=== PATIENT | male | born 1935 | race Caucasian/White ===

== ENCOUNTER 2017-04-30 07:38 | Emergency (ER) | payer MEDICARE, BC ==
[2016-05-03 13:25] VITALS: BMI 26.6
[~2017-04-30 07:38] MED LIST: ATIVAN0.5 MG PO; BAYER CHEWABLE81 MG PO; FLOMAX0.4 MG PO; ISOSORBIDE MONO30 M1 PO; PLAVIX75 MG PO; TOPROL XL50 MG PO; VENTOLIN HFA18 GM INH
[2017-04-30 08:08] LABS: BASOPHILS 0.7 % (0-2); EOSINOPHILS 4.4 % (0-7); HEMATOCRIT 38.3 % (42.0-54.0); HEMOGLOBIN 12.1 g/dL (13.5-17.5); LYMPHOCYTES 11.6 % (15-50); MCH 28.3 pg (26.0-34.0); MCHC 31.6 g/dL (31.0-37.0); MCV 89.7 fL (80.0-100.0); MEAN PLATELET VOLUME 9.6 fL (7.4-10.4); MONOCYTES 13.2 % (2-11); NEUTROPHILS 70.1 % (40-80); PLATELET COUNT 180 10x3/uL (130-400); RBC 4.27 10x6/uL (4.20-6.10); RDW 15.2 % (11.5-14.5); WBC 4.3 10x3/uL (4.8-10.8)
[2017-04-30 08:43] LABS: APTT 27.7 SECONDS (22.8-39.4); INR 0.98 (0.85-1.17); PROTIME 12.8 SECONDS (11.6-15.0)
== END 2017-04-30 09:18 | disposition home or self-care (01) ==
LOC: D.ER 07:38
PROVIDERS: Emergency Medicine
DX: R04.0 Epistaxis (principal)

== ENCOUNTER 2017-08-27 14:19 | Emergency (ER) | payer MEDICARE, BC ==
[2016-05-03 13:25] VITALS: BMI 26.6
== END 2017-08-27 16:29 | disposition home or self-care (01) ==
LOC: D.ER 14:19
DX: S00.83XA Contusion of other part of head, initial encounter (principal); W01.0XXA Fall on same level from slipping, tripping and stumbling without subsequent striking against object, initial encounter; Y93.89 Activity, other specified; Y92.59 Other trade areas as the place of occurrence of the external cause; S51.012A Laceration without foreign body of left elbow, initial encounter; S01.412A Laceration without foreign body of left cheek and temporomandibular area, initial encounter

== ENCOUNTER → 2018-01-31 16:53 | Outpatient (CLI) | payer MEDICARE, BC ==
[2016-05-03 13:25] VITALS: BMI 26.6
== END | disposition home or self-care (01) ==
LOC: D.MRI 16:53
DX: M54.5 Low back pain (principal)

== ENCOUNTER 2018-10-31 06:11 | Outpatient (CLI) | payer MEDICARE, BC ==
[~2018-10-31] VITALS: Ht 175.3 cm; Wt 77.3 kg
--- NOTE | ~2018-10-31 | HEMODYNAMI ---
PATIENT:KHANH KEY MEDICAL RECORD: [id number] : 33 LOCATION:[facility] ADMISSION DATE: 10/31/18 Generatedon:10/31/20188:43 Patient name: KHANH KEY Patient #: [id number] SSN: : [id number] Date of study: 10/31/2018 Page: Of Hemodynamic Procedure Report Patient Data Patient Demographics Procedure consent was obtained First Name: KHANH Gender: Male Last Name: YESI : 1935 [facility] Initial: SHANDRA Age: 82 year(s) Patient #: [id number] Race: Additional ID: [id number] Contact details Address: [address] [place] [address] [place] State: [place] City: [facility] Zip code: [address] Past Medical History Allergies: No known allergies Admission Admission Data Admission Date: 10/31/2018 Admission Time: 6:11 Height (in.): 60 BSA: 1.77 (m2) Height (cm.): 152.4 BMI: 34.37 (kg/m2) Weight (lbs.): 176 Weight (kg.): 79.83 Lab Results Lab Result Date: 10/31/2018 Lab Result Time: 0:00 Biochemistry Name Units Result Min Max BUN mg/dl 26 --(----)-* 7 18 Creatinine mg/dl 1.3 --(---*)-- 0.6 1.3 CBC Name Units Result Min Max Hemoglobin g/dl 12.1 *-(----)-- 13.5 17.5 Procedure Procedure Types Cath Procedure Diagnostic Procedure LHC Coronaries w/Grafts Aortic Root Angiography Sedation Charges Moderate Sedation up to 30 minutes Peripheral Cath Diagnostic Procedure Abd/Extremity Aortagram Procedure Description Procedure Date Procedure Date: 10/31/2018 Procedure Start Time: 8:10 Procedure End Time: 8:41 Procedure Staff Name Function Issac Ritchie MD Performing Physician Neville Wilburn RN Elevated Work Platform Operator Enoch Quiroz RN Nurse Nadine Khanna RT Scrub Delfino Frost RT Monitor Procedure Data Cath Procedure Fluoroscopy Diagnostic fluoroscopy Total fluoroscopy Time: 6.7 time: 6.7 min min Diagnostic fluoroscopy Total fluoroscopy dose: 878 dose: 878 mGy mGy Contrast Material Contrast Material Type Amount (ml) Isovue 300 93 Entry Location Entry Primary Successful Side Size Upsize Upsize Entry Closure [place] ccessful Closure Location (Fr) 1 (Fr) 2 (Fr) Remarks Device Remarks Femoral Right 5 Fr Manual vein Compression Femoral Right 5 Fr Exoseal artery Estimated blood loss: 5 ml Diagnostic catheters Device Type Used For End Catheter Placement MULTIPACK JL 4.0 5Fr Procedure catheter DIAGNOSTIC IM 5Fr Procedure catheter ([id number]) MULTIPACK Pigtail 5 Fr Procedure catheter Procedure Complications No complications Procedure Medications Medication Administration Route Dosage Oxygen etCO2 Nasal cannula 2 l/min Lidocaine 2% added to field 20 Heparin Flush Bag added to field 2 bags (1000units/500ml NS) 0.9% NaCl I.V. 100 ml/hr Versed I.V. 1 mg Fentanyl I.V. 50 mcg Versed I.V. 0.5 mg Fentanyl I.V. 25 mcg Versed I.V. 0.5 mg Fentanyl I.V. 25 mcg Hemodynamics Rest BSA: 1.77 (m2) HGB: 12.1 (g/dl) O2 Consumption: Estimated: 200.61 (ml/min) O2 Co nsumption indexed: Estimated:113.34 (ml/min/m) Heart Rate: 69 (bpm) Snapshots Pre Cath Intra NCS Post Cath Vital Signs Time Heart Resp SPO2 etCO2 NIBP (mmHg) Rhythm Pain Sedation Rate (ipm) (%) (mmHg) Status Level (bpm) 7:58:29 73 14 98 30.4 148/84(119) NSR 0 (11) 10(A) , No pain 8:02:47 69 13 99 0 128/67(89) NSR 0 (11) 10(A) , No pain 8:06:57 69 14 94 0 109/64(77) NSR 0 (11) 9(A) , No pain 8:11:07 67 13 95 0 115/65(89) NSR 0 (11) 9(A) , No pain 8:15:19 68 20 98 8.9 122/69(101) NSR 0 (11) 9(A) , No pain 8:19:35 69 11 96 0 123/64(93) NSR 0 (11) 9(A) , No pain 8:23:51 69 11 93 0 115/62(84) NSR 0 (11) 9(A) , No pain 8:28:05 71 13 94 0 121/61(91) NSR 0 (11) 9(A) , No pain 8:32:19 70 12 93 0 121/67(98) NSR 0 (11) 9(A) , No pain 8:36:35 69 11 94 0 126/62(91) NSR 0 (11) 10(A) , No pain 8:40:49 66 11 99 25.2 121/72(102) NSR 0 (11) 10(A) , No pain Medications Time Medication Route Dose Verified Delivered Reason Notes Effe ctiveness by by 7:56:56 Oxygen etCO2 2 Issac Buffie used for Nasal l/min Chau Quiroz RN procedure cannula 7:57:01 Lidocaine 2% added 20ml Issac Issac for local to vial Chau Ritchie MD anesthetic field 7:57:08 Heparin Flush added 2 Issac Issac used for Bag to bags Chau Ritchie MD procedure (1000units/500ml field NS) 7:57:17 0.9% NaCl I.V. 100 Issac Buffie Per ml/hr Chau Quiroz RN physician 8:05:22 Versed I.V. 1 mg Issac Buffie for Chau Quiroz RN sedation 8:05:27 Fentanyl I.V. 50 Issac Buffie for mcg Chau Quiroz RN anxiety 8:10:38 Versed I.V. 0.5 Issac Buffie for mg Chau Quiroz RN sedation 8:10:42 Fentanyl I.V. 25 Issac Buffie for mcg Chau Quiroz RN anxiety 8:15:39 Versed I.V. 0.5 Issac Buffie for mg Chau Quiroz RN sedation 8:15:42 Fentanyl I.V. 25 Issac Buffie for mcg Chau Quiroz RN anxiety Procedure Log Time Note 7:39:26 Signed procedure consent form obtained from patient. 7:39:51 H&P Date Dictated: 10/24/2018 Within 30 days and on chart., H&P Addendum completed by physician on day of procedure. (MUST COMPLETE FOR ALL OUTPATIENTS). 7:41:31 Patient allergic to No known allergies 7:43:57 Lab Result : Creatinine 1.3 mg/dl 7::57 Lab Result : BUN 26 mg/dl 7:43:57 Lab Result : Hemoglobin 12.1 g/dl 7:44:39 Patient Height : 60 inches 7:44:43 Patient Weight : 176 lbs 7:44:55 Neville Wilburn RN sent for patient. Start room use. 7:44:56 Time tracking: Regular hours (M-F 7:00 - 5:00) 7:44:59 Plan of Care:Hemodynamics will remain stable., Cardiac rhythm will remain stable., Comfort level will be maintained., Respiratory function will remain adequate., Patient/ family verbilizes understanding of procedure., Procedure tolerated without complication., Recovers from procedure without complications.. 7:51:52 Patient received from Pre/Post Procedure Room to [facility] 1 Alert and oriented. Tansferred to table in Supine position. 7:51:53 Warm blankets applied, and kiesha hugger turned on for patient comfort. 7:51:54 Correct patient and procedure confirmed by team. 7:51:54 ECG and BP/O2 sat monitors applied to patient. 7:56:56 Oxygen 2 l/min etCO2 Nasal cannula was administered by Enoch Quiroz RN; used for procedure; 7:57:01 Lidocaine 2% 20ml vial added to field was administered by Issac Ritchie MD; for local anesthetic; 7:57:08 Heparin Flush Bag (1000units/500ml NS) 2 bags added to field was administered by Issac Ritchie MD; used for procedure; 7:57:17 0.9% NaCl 100 ml/hr I.V. was administered by Enoch Quiroz RN; Per physician; 7:57:23 Vital chart was started 8:02:16 Baseline sample Acquired. 8:02:18 Rhythm: sinus rhythm 8:02:21 Full Disclosure recording started 8:02:22 Pre-procedure instructions explained to patient. 8:02:22 Pre-op teaching completed and patient verbalized understanding. 8:02:23 Family in waiting room. 8:02:32 Patient NPO since Midnight. 8:02:36 Is the patient allergic to Iodine/contrast media? No. 8:02:37 Is patient on blood thinner?Yes 8:02:40 ACC The patient was administered the following blood thiners within the last 24 hours: ACCPlavix 8:02:41 Patient diabetic? No. 8:02:44 Previous problem with sedation/anesthesia? No ? 8:02:45 Snore? No 8:02:46 Sleep apnea? No 8:02:46 Deviated septum? No 8:02:47 Opens mouth fully? Yes 8:02:47 Sticks out tongue? Yes 8:02:49 Airway obstruction? Yes ? 8:02:51 Dentures? Yes in tight 8:02:54 Pre procedure: right dorsailis pedis pulse 2+ Normal; easily identifiable; not easily obliterated 8:02:56 Patient pain scale 0/10 ?. 8:02:59 IV patent on arrival in right forearm with 0.9% NaCl at O. 8:03:00 Lab results completed and on chart. 8:03:02 Right groin area was prepped with chlora-prep and draped in sterile fashion 8:03:03 Alarms reviewed by R. N. 8:03:04 Sharps counted by scrub and verified by R.N. 8:03:05 Use device set Femoral Dx 8:03:06 Bag Decanter (2002S) opened to sterile field. 8:03:07 ACIST Syringe (94320) opened to sterile field. 8:03:07 Medline Cath Pack ([id number]) opened to sterile field. 8:03:08 ACIST Hand Control (53213) opened to sterile field. 8:03:08 ACIST Manifold (36952) opened to sterile field. 8:03:09 Tegaderm 4 x 4 (1626W) opened to sterile field. 8:03:10 SHEATH 5FR Rosman ([id number]) opened to sterile field. 8:03:11 DIAGNOSTIC WIRE .035 260cm J wire (385669) opened to sterile field. 8:03:12 DIAGNOSTIC Multipack 5Fr catheter set ([id number]) opened to sterile field. 8:03:19 Physician arrived 8:03:19 --------ALL STOP TIME OUT------ 8:03:19 Final Timeout: patient, procedure, and site verified with staff and physician. All members of the team are in agreement. 8:03:20 Right groin site verified by team. 8:03:23 Maximum allowable Isovue 300 dose 300ml. Physician notified. (300ml for normal creatinines. For patients with creatinine of 1.7 or higher multiply weight(kg) x 5 divided by creatinine.) 8:03:26 Fire Safety Assessment: A--An alcohol-based skin anteseptic being used preoperatively., C--Open oxygen or nitrous oxide is being used., D--An ESU, laser, or fiber-optic light is being used. 8:03:28 Physical assessment completed. ASA score P 2 - A patient with mild systemic disease as per Issac Ritchie MD. 8:03:29 Sedation plan: IV Moderate Sedation Medication:Versed, Fentanyl 8:05:22 Versed 1 mg I.V. was administered by Enoch Quiroz RN; for sedation; 8:05:27 Fentanyl 50 mcg I.V. was administered by Enoch Quiroz RN; for anxiety; 8:06:04 Zero performed for pressure channel P1 8:10:14 Procedure started. 8:10:19 Local anesthetic to right femoral vein with Lidocaine 2% by Issac Ritchie MD.INITIAL ACCESS ONLY 8:10:28 A 5 Fr sheath was inserted into the Right Femoral vein 8:10:38 Versed 0.5 mg I.V. was administered by Enoch Quiroz RN; for sedation; 8:10:42 Fentanyl 25 mcg I.V. was administered by Enoch Quiroz RN; for anxiety; 8:13:03 SHEATH 5FR Rosman ([id number]) opened to sterile field. 8:13:54 A 5 Fr sheath was inserted into the Right Femoral artery 8:15:39 Versed 0.5 mg I.V. was administered by Enoch Quiroz RN; for sedation; 8:15:42 Fentanyl 25 mcg I.V. was administered by Enoch Quiroz RN; for anxiety; 8:19:57 A MULTIPACK JL 4.0 5Fr catheter was advanced over the wire and used for Procedure. 8:20:17 LCA angiography performed. 8:23:42 Catheter exchanged over wire. 8:25:05 A DIAGNOSTIC IM 5Fr catheter ([id number]) was advanced over the wire and used for Procedure. 8:27:45 GLIDE WIRE ANGLE 260cm (RO4160) opened to sterile field. 8:29:03 WHALEY to LAD angiography performed. 8:29:44 Catheter exchanged over wire. 8:30:04 A MULTIPACK Pigtail 5 Fr catheter was advanced over the wire and used for Procedure. 8:31:27 Aortic Root visualized 8:32:53 Abdominal Aortagram was performed. 8:37:52 Catheter removed. 8:37:59 EXOSEAL 5Fr (EX500) opened to sterile field. 8:38:35 Sheath removed intact; hemostasis achieved with Exoseal to the Right Femoral artery. 8:38:40 Sheath removed intact; hemostasis achieved with Manual Compression to the Right Femoral vein. 8:38:47 Procedure ended.(Physican Out) 8:39:15 Fluoroscopy time 06.70 minutes. 8:39:19 Flurop Dose total: 878 8:39:19 Fluoroscopy dose: 878 mGy 8:39:30 Contrast amount:Isovue 300 93ml. 8:39:32 Sharps counted by scrub and verified by R.N. 8:39:32 Insertion/operative site no bleeding no hematoma. 8:39:35 Post-op/insertion site Right Femoral artery dressed using a 4 x 4 and Tegaderm. 8:39:38 Post right femoral artery:stable, soft, clean and dry 8:39:39 Post Procedure Pulses reassessed and unchanged 8:39:41 Post-procedure physical assessment completed. ASA score P 2 - A patient with mild systemic disease as per Issac Ritchie MD. 8:39:43 Post procedure rhythm: unchanged. 8:39:44 Estimated blood loss: 5 ml 8:39:46 Post procedure instruction explained to patient.Patient verbalizes understanding. 8:39:46 Patient needs reinforcement of post procedure teaching. 8:40:10 Procedure type changed to Cath procedure, Diagnostic procedure, LHC, Coronaries w/Grafts, Aortic Root Angiography, Sedation Charges, Moderate Sedation up to 30 minutes, Peripheral Cath Diagnostic Procedure, Abd/Extremity, Aortagram 8:41:46 Procedure and supply charges have been captured, reviewed, submitted and are correct. 8:41:49 Procedure Complication : No complications 8:41:51 Vital chart was stopped 8:41:52 See physician's report for complete and final results. 8:41:53 Report given to Pre/Post Procedure Room. 8:41:55 Patient transfered to Pre/Post Procedure Room with Stretcher. 8:41:57 Procedure ended. 8:41:57 Full Disclosure recording stopped 8:42:00 End room use (Document Last) Device Usage Item Name Manufacture Quantity Catalog Hospital Part Current Minimal L ot# / Number Charge Number Stock Stock Serial# Code Bag Marlo 1 [id number] 28545 680457 5 Decanter Medical Inc. () ACIST Acist 1 10130 001888 928437 852856 20 Syringe Medical (83284) Systems Inc Medline Medline 1 [id number] 644488 95864 357115 5 Cath Pack ([id number]) ACIST Hand Acist 1 81139 270487 268886 075321 5 Control Medical (52648) Systems Inc ACIST Acist 1 09074 884144 752307 568212 5 Manifold Medical (77432) Systems Inc Tegaderm 4 3M 1 1626W 214275 873115 527630 5 x 4 (1626W) SHEATH 5FR Terumo 2 [id number] 459904 270015 780097 5 Rosman (STT897) DIAGNOSTIC [facility] 1 372918 003918 559216 917981 30 WIRE .035 260cm J wire (982543) DIAGNOSTIC Cardinal 1 HJ3599 155903 09893 749464 30 Multipack Health 5Fr catheter set (SP1427) MULTIPACK Cardinal 1 759819 5 JL 4.0 5Fr Health catheter DIAGNOSTIC Cardinal 1 [id number] 907121 794868 717847 5 IM 5Fr Health catheter (608601W) GLIDE WIRE Terumo 1 [id number] 231963 200509 002811 5 ANGLE 260cm (WS9399) EXOSEAL 5Fr Cardinal 1 EX500 206307 185855 043534 10 (EX500) Health MULTIPACK Cardinal 1 389523 5 Pigtail 5 Health Fr catheter Signature Audit [place] Stage Time Signature Unsigned Intra-Procedure 10/31/2018 Delfino Frost 8:42:54 AM RT(R) Signatures Monitor : Delfino Frost RT Signature : Date : Time : [facility] [address] [place] [address]
[2018-10-31] MEDS ORDERED: LASIX40 MG PO (06:29)
[2018-10-31] MEDS ORDERED: KLOR-CON 1010 MEQ PO (06:29)
[2018-10-31] MEDS ORDERED: COREG 3.1253.125 MG PO (06:30)
[2018-10-31] MEDS ORDERED: B-12 DOTS500 MCG PO (06:30)
[2018-10-31] MEDS ORDERED: VITAMIN D2000 UNIT PO (06:31)
[2018-10-31] MEDS ORDERED: NIASPAN500 MG PO (06:31)
[2018-10-31] MEDS ORDERED: MIRALAX17 GM PO (06:31)
[2018-10-31 06:42] VITALS: BP 132/72; Ht 175.3 cm; Wt 77.3 kg
[2018-10-31 07:02] LABS: BASOPHILS 0.5 % (0-2); EOSINOPHILS 3.7 % (0-7); HEMATOCRIT 37.9 % (42.0-54.0); HEMOGLOBIN 12.1 g/dL (13.5-17.5); IMMATURE GRANULOCYTES 0.3 % (0-5); LYMPHOCYTES 13.6 % (15-50); MCH 27.4 pg (26.0-34.0); MCHC 31.9 g/dL (31.0-37.0); MCV 85.7 fL (80.0-100.0); MEAN PLATELET VOLUME 10.4 fL (7.4-10.4); MONOCYTES 15.7 % (2-11); NEUTROPHILS 66.2 % (40-80); PLATELET COUNT 203 10x3/uL (130-400); RBC 4.42 10x6/uL (4.20-6.10); RDW 15.3 % (11.5-14.5); WBC 5.9 10x3/uL (4.8-10.8)
[2018-10-31 07:03] LABS: ANION GAP 13.5 mmol/L (8-16); CALCIUM 8.3 mg/dL (8.5-10.1); CARBON DIOXIDE 27.5 mmol/L (21.0-32.0); CREATININE - SERUM 1.3 mg/dL (0.6-1.3)
--- NOTE | 2018-10-31 08:55 | NUR ---
PT RECEIVED VIA STRETCHER FROM DIRECTOR OF PUBLIC SAFETY FOR RECOVERY. PT DROWSY BUT AROUSES TO VERBAL STIMULI. 5 FR EXOCELE TO R GROIN, DRESSING CDI NO BLEEDING OR HEMATOMA NOTED. PT INSTRUCTED TO KEEP R LEG STRAIGHT AND HEAD ON PILLOW, HE VERBALIZED UNDERSTANDING. CALL LIGHT IN REACH. FAMILY IN ROOM SPEAKING W DR VELEZ REGARDING PROCEDURE RESULTS AND FOLLOW UP CARE.
[2018-10-31] MEDS ORDERED: ISOSORBIDE MONO30 M1 PO (09:00)
--- NOTE | 2018-10-31 09:13 | NUR ---
PT REMAINS RESTING COMFORTABLE, R GROIN DRESSING REMAINS CDI NO BLEEDING OR HEMATOMA NOTED. CALL LIGHT IN REACH. TOLERATING FLUIDS W/O NAUSEA. PT DENIES PAIN OR NEEDS.
--- NOTE | 2018-10-31 09:45 | NUR ---
PT STILL SLEEPING, R GROIN REMAINS SOFT, NO BLEEDING OR HEMATOMA NOTED. CALL LIGHT IN REACH . PEDAL PULSES PALPABLE.
--- NOTE | 2018-10-31 10:00 | NUR ---
PATIENT AWAKE, VSS ON 1L NC. HEAD OF BED ELEVATED TO 30 DEGREES. RIGHT GROIN DRESSING IS CDI, NO S/S OF BLEEDING OR HEMATOMA. TOLERATING PO FLUIDS.
--- NOTE | 2018-10-31 10:15 | NUR ---
HEAD OF BED ELEVATED TO 60 DEGREES. RIGHT GROIN DRESSING IS CDI, NO S/S OF BLEEDING OR HEMATOMA. NO C/O PAIN, NUMBNESS, OR TINGLING. FAMILY AT BEDSIDE.
--- NOTE | 2018-10-31 10:35 | NUR ---
IV REMOVED W CATH INTACT. PT SITTING UP IN BED, DENIES PAIN OR NEEDS. HR NSR RATE 62, BP 136/52. CALL LIGHT IN REACH
--- NOTE | 2018-10-31 10:50 | NUR ---
DISCHARGE INSTRUCTIONS AND MEDICAION LIST REVIEWED W PT AND FAMILY, ALL VERBALIZED UNDERSTANDING. MONITORS REMOVED AND PT UP TO DRESS FOR DISCHARGE.
--- NOTE | 2018-10-31 11:06 | NUR ---
PT DISCHARGED VIA WC TO PRIVATE VEHICLE.
== END 2018-10-31 11:05 | disposition home or self-care (01) ==
LOC: D.CATH 06:11
PROVIDERS: ATTEND Internal Medicine Cardiovascular Disease
DX: I25.119 Atherosclerotic heart disease of native coronary artery with unspecified angina pectoris (principal); I35.1 Nonrheumatic aortic (valve) insufficiency; Z01.812 Encounter for preprocedural laboratory examination